=== PATIENT | female | born 1930 | race Caucasian/White ===

== ENCOUNTER → 2020-03-23 | Outpatient (CLI) | payer MEDICARE, OTHER | LOC: HHH 14:47 | PROVIDERS: ATTEND Emergency Medicine | DX: R33.8 Other retention of urine (principal) ==

== ENCOUNTER → 2020-04-27 | Outpatient (CLI) | payer MEDICARE, OTHER | LOC: HHH 14:55 | PROVIDERS: ATTEND Emergency Medicine | DX: N39.0 Urinary tract infection, site not specified (principal) ==